=== PATIENT | male | born 1995 | race Caucasian/White ===

== ENCOUNTER 2018-06-03 10:31 | Emergency (ER) | payer SELFPAY ==
[~2018-06-03] VITALS: Ht 177.8 cm; Wt 69.4 kg
[~2018-06-03 10:31] MED LIST: IBUP800T26 PO
--- OUTSIDE RECORDS SUMMARY | 2018-06-03 10:37 | XMS REPORT | Clinical Summary ---
Author Author [facility] Address Unknown Phone Unavailable Care Team Providers Care Head Of Integrated Media Name Role Phone PP Unavailable Allergies Not on File Current Medications Not on file Active Problems Not on file Social History Tobacco Use Types Packs/Day Years Used Date Never Assessed Sex Assigned at Date Recorded Not on file Last Filed Vital Signs Vital Sign Reading Time Taken Blood Pressure 126/80 03/30/2014 12:01 AM CDT Pulse - - Temperature - - Respiratory Rate - - Oxygen Saturation - - Inhaled Oxygen - - Concentration Weight 64.4 kg (142 lb) 03/30/2014 12:01 AM CDT Height 179.1 cm (5' 10.5") 03/30/2014 12:01 AM CDT Body Mass Index 20.09 03/30/2014 12:01 AM CDT Plan of Treatment Health Maintenance Due Date Last Done Comments Varicella Vaccines (1 of 02/25/2008 2 - 2-dose adolescent series) DTaP,Tdap,and Td Vaccines 2014 (1 - Tdap) Influenza Vaccine (#1) 2018 HPV Vaccines Aged Out No longer eligible based on patient's age to complete this topic MenB Vaccine (Bexsero) Aged Out No longer eligible based on patient's age to complete this topic Results Not on filefrom Last 3 Months
--- OUTSIDE RECORDS SUMMARY | 2018-06-03 10:37 | XMS REPORT ---
Author Author [facility] Medical Staff Organization [facility] Address [address] [place] [address] Phone [phone] Summary purpose CCDA Sent to [facility] Chief Complaint and Reason for Visit Admit Diagnosis 1 Chest pain Problem list No authorized problems tracked for continuity of care are available for this visit. Encounters No authorized problems tracked for encounter diagnoses are available for this visit. Medications No medications recorded for this patient visit Allergies, adverse reactions, alerts No allergy information is available for this patient. Immunizations No immunizations recorded for this patient visit Relevant diagnostic tests and/or laboratory data No authorized results are available for this patient visit History of procedures Procedure Code Code Type Description Date Performed Performing Physician 12466 CPT-4 ROUTINE VENIPUNCTURE 08-17-2017 MICHAEL MCCALL 08586 CPT-4 COMPLETE CBC W/AUTO DIFF WBC 08-17-2017 MICHAEL MCCALL 19617 CPT-4 COMPREHEN METABOLIC PANEL 08-17-2017 MICHAEL MCCALL 71021 CPT-4 PROTHROMBIN TIME 08-17-2017 MICHAEL MCCALL 75820 CPT-4 THROMBOPLASTIN TIME, PARTIAL 08-17-2017 MICHAEL MCCALL 94925 CPT-4 RBC SED RATE, NONAUTOMATED 08-17-2017 MICHAEL MCCALL 06711 CPT-4 ASSAY OF TROPONIN, QUANT 08-17-2017 MICHAEL MCCALL 94459 CPT-4 CREATINE, MB FRACTION 08-17-2017 MICHAEL MCCALL 05011 CPT-4 ASSAY OF MYOGLOBIN 08-17-2017 MICHAEL MCCALL 99589 CPT-4 ELECTROCARDIOGRAM, TRACING 08-17-2017 MICHAEL MCCALL 01721 CPT-4 X-RAY EXAM CHEST 1 VIEW 08-17-2017 MICHAEL MCCALL J2270 CPT-4 MORPHINE 08-17-2017 MICHAEL MCCALL 41777 CPT-4 THER/PROPH/DIAG INJ, IV PUSH 08-17-2017 MICHAEL MCCALL 30586 CPT-4 EMERGENCY DEPT VISIT 08-17-2017 MICHAEL MCCALL Functional status No functional or cognitive status observations are available for this visit. Vital signs No authorized vital signs are available for this visit. Social history No Social History or smoking status observations were recorded for this visit. ( Unknown if ever smoked.) Treatment Plan No treatment plan text is available for this visit. Hospital discharge instructions No discharge instruction text is available for this visit.
--- OUTSIDE RECORDS SUMMARY | 2018-06-03 10:38 | XMS REPORT ---
Author Author MYRON FELICIANO Organization [facility] Address [address] [place] [address] Care Team Providers Care Dried Fruit Washer Name Role Phone MYRON FELICIANO Unavailable PROBLEMS Unknown Problems ALLERGIES No Known Allergies ENCOUNTERS Encounter Location Date Diagnosis [facility] [address] [facility] [id number] [address] Sep, Acute nasopharyngitis J00 [facility] [address] [facility] [id number], [place] [address] May, Sore throat J02.9 ; Influenza A J10.1 and Cough R05 IMMUNIZATIONS No Known Immunizations SOCIAL HISTORY Never Assessed REASON FOR VISIT sore throat, fever, chills, cough x1-2 weeks [email or web address] PLAN OF CARE Activity Details Follow Up prn in clinic or with PCP Reason: VITAL SIGNS Weight 156.8 lbs 2017-06-05 Temperature 100.5 degrees Fahrenheit 2017-06-05 Heart Rate 80 bpm 2017-06-05 Respiratory Rate 18 2017-06-05 Blood pressure systolic 112 mmHg 2017-06-05 Blood pressure diastolic 64 mmHg 2017-06-05 MEDICATIONS Medication Instructions Dosage Frequency Start Date End Date Duration Status ProAir HFA 108 (90 Base) MCG/ACT Inhalation every 4-6 hrs 2 puffs as needed May, 0 days Active Tylenol 325 MG Orally every 6 hrs 2 tablets as needed 6h Active Benzonatate 200 mg Orally Three times a day 1 capsule 8h May, Jun, 07 days Active Azithromycin 250 MG Orally Once a day 2 tablets on the first day, then 1 tablet daily for 4 days 24h May, Jun, 5 day(s) Active RESULTS Name Result Date Reference Range INFLUENZA A & B (IN HOUSE) 2017-06-05 INFLUENZA A positive INFLUENZA B negative Control + Lot # [id number] Exp date 2019-09-04 STREP A (IN HOUSE) 2017-06-05 STREP A negative Control + Lot # [id number] Exp date 05-06-18 PROCEDURES Procedure Date Ordered Result Body Site STREP A ASSAY W/OPTIC Jun 05, 2017 INFLUENZA ASSAY W/OPTIC Jun 05, 2017 INSTRUCTIONS MEDICATIONS ADMINISTERED No Known Medications
--- OUTSIDE RECORDS SUMMARY | 2018-06-03 10:38 | XMS REPORT ---
Author Author JAVI VELÁZQUEZ Organization [facility] Address [address] [place] [address] Care Team Providers Care Data Analysis Assistant Name Role Phone JAVI VELÁZQUEZ Unavailable PROBLEMS Unknown Problems ALLERGIES No Known Allergies ENCOUNTERS Encounter Location Date Diagnosis [facility] [address] [facility] [id number], [place] [address] Sep, Acute nasopharyngitis J00 [facility] [address] [id number], [place] [address] May, Sore throat J02.9 ; Influenza A J10.1 and Cough R05 IMMUNIZATIONS No Known Immunizations SOCIAL HISTORY Never Assessed REASON FOR VISIT sore throat/chest congestion for 10 days. [email or web address] PLAN OF CARE Activity Details Follow Up prn Reason: VITAL SIGNS Height 69 in 2017-09-24 Weight 154.2 lbs 2017-09-24 Temperature 98.1 degrees Fahrenheit 2017-09-24 Heart Rate 80 bpm 2017-09-24 Respiratory Rate 2017-09-24 BMI 22.77 kg/m2 2017-09-24 Blood pressure systolic 116 mmHg 2017-09-24 Blood pressure diastolic 74 mmHg 2017-09-24 MEDICATIONS Medication Instructions Dosage Frequency Start Date End Date Duration Status Tylenol 325 MG Orally every 6 hrs 2 tablets as needed 6h Active ProAir HFA 108 (90 Base) MCG/ACT Inhalation every 4-6 hrs 2 puffs as needed May, 0 days Not-Taking RESULTS No Results PROCEDURES No Known procedures INSTRUCTIONS MEDICATIONS ADMINISTERED No Known Medications
--- OUTSIDE RECORDS SUMMARY | 2018-06-03 10:38 | XMS REPORT | Continuity of Care Document ---
Author Author [facility] Address Unknown Phone Unavailable Allergies Active Description Code Type Severity Reaction Onset Reported/Identified Relationship to Patient Clinical Status Yes No Known Drug Allergies [id number] Drug Allergy Unknown N/A 11/23/2013 Medications There is no data. Problems Date Dx Coded Attending Type Code Diagnosis Diagnosed By 11/24/2013 TEO HINDS DO Ot 564.00 11/24/2013 TEO HINDS DO Ot 789.00 05/17/2015 LILLIANA FINCH MD Ot 440.20 05/17/2015 SONAM CARBAJAL APRN Ot R05 05/17/2015 SONAM CARBAJAL APRN Ot R07.9 08/17/2017 MICHAEL MCCALL MD R00.2 Palpitations 08/17/2017 MICHAEL MCCALL MD R07.9 Chest pain, unspecified Procedures Code Description [place] [address] ROUTINE VENIPUNCTURE MICHAEL MCCALL MD 08/17/2017 83760 X-RAY EXAM CHEST 1 VIEW MICHAEL MCCALL MD 08/17/2017 59387 COMPREHEN METABOLIC PANEL MICHAEL MCCALL MD 08/17/2017 52439 CREATINE MB FRACTION MICHAEL MCCALL MD 08/17/2017 31727 ASSAY OF MYOGLOBIN MICHAEL MCCALL MD 08/17/2017 82832 ASSAY OF TROPONIN QUANT MICHAEL CMCALL MD 08/17/2017 82180 COMPLETE CBC W/AUTO DIFF WBC MICHAEL MCCALL MD 08/17/2017 80635 PROTHROMBIN TIME MICHAEL MCCALL MD 08/17/2017 81568 RBC SED RATE NONAUTOMATED MICHAEL MCCALL MD 08/17/2017 08840 THROMBOPLASTIN TIME PARTIAL MICHAEL MCCALL MD 08/17/2017 22618 ELECTROCARDIOGRAM TRACING MICHAEL MCCALL MD 08/17/2017 45675 THER/PROPH/DIAG INJ IV PUSH MICHAEL MCCALL MD 08/17/2017 67823 EMERGENCY DEPT VISIT MICHAEL MCCALL MD 08/17/2017 J2270 MORPHINE SULFATE INJECTION MICHAEL MCCALL MD 08/17/2017 Results Test Result Range CBC WITH DIFF - 09/13/14 02:14 WBC 11.6 10*3/uL 4.3-10.8 RBC 5.49 10*6/uL 4.70-6.10 HGB 16.4 g/dL 14.0-18.0 HCT 47.9 % 42-52 MCV 87 fL 81-99 MCH 30 pg 26-34 MCHC 34 g/dL 31-37 PLATELET COUNT 217 10*3/uL 150-400 RDWCV 13.7 % 11.5-14.5 DIFF TYPE AUTOMATED DIFF NEUTROPHIL % 73 % 36-66 LYMPHOCYTE % 16 % 24-44 MONOCYTE % 5 % 1-10 EOSINOPHIL % 4 % 0-6 BASOPHIL % 2 % 0-2 ABS. NEUTROPHILS 8.4 10*3/uL 1.55-7.13 ABS. LYMPHOCYTES 1.9 10*3/uL 1.0-4.8 ABS. MONOCYTES 0.6 10*3/uL 0.4-1.08 ABS. EOSINOPHILS 0.4 10*3/uL 0.0-0.65 ABS. BASOPHILS 0.3 10*3/uL 0.0-0.11 ABSOLUTE NUCLEATED RBC 0.00 10*3/uL PROCALCITONIN - 09/13/14 02:14 PROCALCITONIN <0.05 ng/mL BASIC METABOLIC PANEL POCT - 09/13/14 02:36 POC COMMENT SEE NOTES SODIUM POCT 143 mmol/L 138-146 POTASSIUM POCT 3.7 mmol/L 3.5-4.9 CHLORIDE POCT 104 mmol/L 98-109 MEASURED TOTAL CO2 POCT 22 meq/L 24-29 BUN POCT 13 mg/dL 8-26 CREATININE POCT 1.1 mg/dL 0.6-1.3 GLUCOSE POCT 111 mg/dL 70-105 IONIZED CALCIUM POCT 1.05 mmol/L 1.12-1.32 URINALYSIS POC - 09/13/14 02:47 COLOR, URINE POCT DARK YELLOW APPEARANCE, URINE POCT CLEAR GLUCOSE, URINE POCT NEGATIVE mg/dL NEGATIVE BILIRUBIN, URINE POCT SMALL NEGATIVE KETONES, URINE POCT 15 mg/dL NEGATIVE SPECIFIC GRAVITY, URINE POCT 1.025 1.005-1.030 BLOOD, URINE POCT TRACE INTACT NEGATIVE PH, URINE POCT 6.5 5.0-9.0 PROTEIN, URINE POCT 30 mg/dL NEGATIVE UROBILINOGEN, URINE POCT 1.0 EhrlichU/dL 0.2-1.0 NITRITES, URINE POCT NEGATIVE NEGATIVE LEUKOCYTES, URINE POCT NEGATIVE NEGATIVE Encounters ACCT No. Visit Date/Time Discharge Status Pt. Type Provider Facility Loc./Unit Complaint [id number] 08/17/2017 12:47:00 08/17/2017 14:40:00 DIS Emergency CAL HUERTA, MICHAEL Mirza [facility] ER [id number] 08/19/2017 10:42:24 ACT Document Registration [id number] 09/13/2014 01:23:00 09/13/2014 05:54:00 DIS Emergency ANNA ANNE [facility] FED [id number] 03/19/2014 11:41:00 03/19/2014 12:59:00 DIS Emergency [facility] FED [id number] 09/24/2017 12:45:00 09/24/2017 23:59:59 CLS [facility] [id number] 05/17/2015 15:04:00 05/17/2015 16:48:00 DIS Emergency SONAM CARBAJAL APRN [facility] ER [id number] 11/30/2013 19:44:00 11/30/2013 23:59:59 CLS Emergency [id number] 11/23/2013 23:21:00 11/24/2013 01:20:00 DIS Emergency TEO HINDS DO [facility] ER [id number] 07/04/2013 15:03:00 07/04/2013 23:59:59 CLS Outpatient LILLIANA FINCH MD [facility] RAD
--- NOTE | 2018-06-03 10:57 | ED Chest Pain ---
General Chief Complaint: Chest Pain Stated Complaint: CHEST PAIN Nursing Triage Note: ARRIVED VIA AMB FROM WORK. 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 JAMESON ANXIETY NOW BUT CHEST PAIN REMAINS Nursing Sepsis Screen: No Definite Risk Source: patient Exam Limitations: no limitations History of Present Illness Date Seen by Provider: Jun 03, 2018 Time Seen by Provider: 10:53 Initial Comments To ER with a report of sharp and tight left-sided chest pain. This pain began at 10 AM this morning while he was sandblasting. He did feel anxious at that time. Anxiety has subsided with the chest pain persists. He has a history of atrial fibrillation he states about 4 times intermittently over the past 5 years. States he does not take any medication for it because he could not afford it. Primary care is Dr. Torres. This pain that he is having today does remind him of prior episodes of atrial fibrillation. Timing/Duration: changing over time Severity/Quality: moderate Location: central Radiation: no radiation Activities at Onset: none Prior CP/Workup: other ASA po INTERNAL AFFAIRS INVESTIGATOR: No NTG SL INTERNAL AFFAIRS INVESTIGATOR: No Allergies and Home Medications Allergies Coded Allergies: No Known Drug Allergies (Unverified , 11/23/13) Home Medications No Active Prescriptions or Reported Meds Patient Home Medication List Home Medication List Reviewed: Yes Review of Systems Review of Systems Constitutional: see HPI; No chills, No fever EENTM: No Symptoms Reported; No Nose Congestion, No Nose Pain Respiratory: Cough (infrequent nonproductive cough) Cardiovascular: See HPI, Chest Pain Gastrointestinal: See HPI Genitourinary: No Symptoms Reported Musculoskeletal: no symptoms reported Skin: no symptoms reported Psychiatric/Neurological: No Symptoms Reported Endocrine: No Symptoms Reported Hematologic/Lymphatic: No Symptoms Reported Past Ipfditg-Psgaiu-Flkqvp Hx Patient Social History Alcohol Use: Denies Use Recreational Drug Use: No Smoking Status: Never a Smoker Type Used: Smokeless Tobacco Recent Foreign Travel: No Contact w/Someone Who Travel: No Recent Infectious Disease Expo: No Past Medical History Surgeries: Yes (WISDOM TEETH, FEMORAL ARTERY REPAIR. ) Orthopedic Respiratory: No Cardiac: Yes Atrial Fibrillation Neurological: No Reproductive Disorders: No Genitourinary: No Gastrointestinal: No Musculoskeletal: No Endocrine: No HEENT: No Cancer: No Psychosocial: No Integumentary: No Blood Disorders: No Adverse Reaction/Blood Tranf: No Physical Exam Vital Signs Vital Signs - First Documented 06/03/18 10:32 Temp 96.7 Pulse 84 Resp 16 B/P (MAP) 123/91 (102) Pulse Ox 99 O2 Delivery Room Air Capillary Refill : Less Than 3 Seconds Height, Weight, BMI Height: 5'10.00" Weight: 153lbs. oz. 69.019095fy; BMI Method:Stated General Appearance: No Apparent Distress, WD/WN HEENT: PERRL/EOMI, TMs Normal Neck: Full Range of Motion, Normal Inspection Respiratory: Normal Breath Sounds, No Accessory Muscle Use, No Respiratory Distress Cardiovascular: Regular Rate, Rhythm, Normal Peripheral Pulses Gastrointestinal: Normal Bowel Sounds, Non Tender, Soft Extremity: Normal Capillary Refill Neurologic/Psychiatric: Alert, Oriented x3 Skin: Normal Color, Warm/Dry Other comments Is in normal sinus rhythm rate of 84 no ectopy Progress/Results/Core Measures Results/Orders Lab Results Laboratory Tests Test 06/03/18 11:00 Range/Units White Blood Count 6.5 4.3-11.0 10^3/uL Red Blood Count 5.31 4.35-5.85 10^6/uL Hemoglobin 16.0 13.3-17.7 G/DL Hematocrit 45 40-54 % Mean Corpuscular Volume 84 80-99 FL Mean Corpuscular Hemoglobin 30 25-34 PG Mean Corpuscular Hemoglobin Concent 36 32-36 G/DL Red Cell Distribution Width 13.0 10.0-14.5 % Platelet Count 217 130-400 10^3/uL Mean Platelet Volume 11.0 H 7.4-10.4 FL Neutrophils (%) (Auto) 57 42-75 % Lymphocytes (%) (Auto) 30 12-44 % Monocytes (%) (Auto) 9 0-12 % Eosinophils (%) (Auto) 3 0-10 % Basophils (%) (Auto) 1 0-10 % Neutrophils # (Auto) 3.7 1.8-7.8 X 10^3 Lymphocytes # (Auto) 2.0 1.0-4.0 X 10^3 Monocytes # (Auto) 0.6 0.0-1.0 X 10^3 Eosinophils # (Auto) 0.2 0.0-0.3 10^3/uL Basophils # (Auto) 0.0 0.0-0.1 10^3/uL Troponin I < 0.30 <0.30 NG/ML My Orders Orders - SONAM CARBAJAL APRN Cbc With Automated Diff (06/03/18 10:35) Troponin I (06/03/18 10:35) Ekg Tracing (06/03/18 10:35) Chest Pa/Lat (2 View) (06/03/18 10:35) Ketorolac Injection (Toradol Injection) (06/03/18 11:00) Medications Given in ED Current Medications Medications Dose Ordered Sig/Maria C Route Start Time Stop Time Status Last Admin Dose Admin Ketorolac Tromethamine 30 mg ONCE ONCE IVP 06/03/18 11:00 06/03/18 11:01 DC 06/03/18 11:26 30 MG Vital Signs/I&O 06/03/18 10:32 Temp 96.7 Pulse 84 Resp 16 B/P (MAP) 123/91 (102) Pulse Ox 99 O2 Delivery Room Air Blood Pressure Mean: 102 Departure Impression Primary Impression: Chest pain Qualified Codes: R07.9 - Chest pain, unspecified Disposition: HOME, SELF-CARE Condition: Stable Departure-Patient Inst. Decision time for Depature: 11:37 Referrals: BANDAR TORRES MD (PCP/Family) Primary Care Physician Patient Instructions: Chest Pain That Is Not Caused by the Heart (DC) Add. Discharge Instructions: All discharge instructions reviewed with patient and/or family. Voiced understanding. 1. Follow-up with Dr. Torres. Return to ER for any concerns 2. Scripts No Active Prescriptions or Reported Meds Work/School Note: Work Release Form Date Seen in the Emergency Department: Jun 03, 2018 Return to Work: Jun 04, 2018 SONAM CARBAJAL APRN Jun 03, 2018 10:57
[2018-06-03] MEDS ORDERED: KETOROLAC 30 MG/ML VIAL IVP ONE (11:00)
[2018-06-03 11:08] LABS: BASOPHILS % (AUTO) 1 % (0-10); EOSINOPHILS # (AUTO) 0.2 10^3/uL (0.0-0.3); EOSINOPHILS % (AUTO) 3 % (0-10); HEMATOCRIT 45 % (40-54); LYMPHOCYTES % (AUTO) 30 % (12-44); MEAN CORPUSCULAR HEMOGLOBIN 30 PG (25-34); MEAN CORPUSCULAR HGB CONC 36 G/DL (32-36); MEAN CORPUSCULAR VOLUME 84 FL (80-99); MONOCYTES # (AUTO) 0.6 X 10^3 (0.0-1.0); MONOCYTES % (AUTO) 9 % (0-12); NEUTROPHILS # (AUTO) 3.7 X 10^3 (1.8-7.8); NEUTROPHILS % (AUTO) 57 % (42-75); PLATELET COUNT 217 10^3/uL (130-400); RED BLOOD COUNT 5.31 10^6/uL (4.35-5.85); WHITE BLOOD COUNT 6.5 10^3/uL (4.3-11.0)
--- NOTE | 2018-06-03 11:33 | Diagnostic Imaging Report ---
INDICATION: Chest pain COMPARISON: 05/17/2015 FINDINGS: Frontal and lateral views of the chest demonstrate normal heart size and pulmonary vascularity. The lungs are clear. There are no signs of infiltrate, pleural effusions or pneumothoraces. The visualized osseous structures show no acute abnormalities. IMPRESSION: 1. No acute process. No signs of infiltrates, effusions or pneumothoraces. Dictated by: Dictated on workstation # [id number]
[2018-06-03 11:43] VITALS: BP 124/85
== END 2018-06-03 11:43 | disposition home or self-care (01) ==
LOC: EDUNIT# 10:31 → ER 10:33
DX: R07.89 Other chest pain (principal); I48.91 Unspecified atrial fibrillation
CPT/HCPCS: 36415; 71046; 84484; 85025

== ENCOUNTER 2018-12-26 23:54 | Emergency (ER) | payer SELFPAY ==
[~2018-12-26] VITALS: Ht 177.8 cm; Wt 65.8 kg
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
[2018-12-27] MEDS ORDERED: TETANUS,DIPTH,PERTUSS P/F (BOOSTRIX) 0.5 ML VIAL IM ONE (00:45)
[2018-12-27] MEDS ORDERED: ONDANSETRON 4 MG (ZOFRAN) ORAL DISSOLVE TAB SL ONE (00:45)
--- NOTE | 2018-12-27 00:48 | NUR ---
dr must have placed a c collar on pt
--- NOTE | 2018-12-27 01:02 | NUR ---
report to zhang chaves.
--- NOTE | 2018-12-27 01:13 | NUR ---
dr meadows/lima guzman
[2018-12-27] MEDS ORDERED: ONDA4TAB11 SL (01:22)
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
[2018-12-27 01:28] VITALS: BP 128/83
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
== END 2018-12-27 01:26 | disposition home or self-care (01) ==
LOC: EDUNIT# 23:54 → ER 23:57
DX: S06.0X0A Concussion without loss of consciousness, initial encounter (principal); S61.511A Laceration without foreign body of right wrist, initial encounter; L02.12 Furuncle of neck; I48.91 Unspecified atrial fibrillation; R40.2142 Coma scale, eyes open, spontaneous, at arrival to emergency department; R40.2252 Coma scale, best verbal response, oriented, at arrival to emergency department; R40.2362 Coma scale, best motor response, obeys commands, at arrival to emergency department; F17.200 Nicotine dependence, unspecified, uncomplicated; Y04.0XXA Assault by unarmed brawl or fight, initial encounter
CPT/HCPCS: 70450; 72125; 90471; 90715